=== PATIENT | male | born 1980 | race Caucasian/White ===

== ENCOUNTER 2016-09-05 13:19 | Emergency (ER) | payer OTHER ==
--- NOTE | ~2016-09-05 | CR170 ---
[facility] A Service of [facility] & [facility] RADIOLOGY TEXT RESULTS PATIENT: TED DUMONT LOCATION: SED : 78 UNIT #: [id number] AGE: [address]: Deepika Seymour SEX: M ORDER DR: [id number] [place] [id number] E MR#: [id number] Acc #: [id number] NAME: TED DUMONT : 1980 SEX: M STUDY DATE/TIME: 09/05/2016 1359 UNIT: SED ROOM: STUDY DESCRIPTION: CR Knee 2 Views Rt Attending Physician: Deepika Seymour Pa-C Ordering Physician: Deepika Seymour Pa-C Primary Care Physician: No Primary Care Physician MEDICAL IMAGING REPORT This report is preliminary unless electronic signature is present. EXAM Right knee 2 views 09/05/2016 1359 hours HISTORY 36-year-old who fell today with twisting injury to knee COMPARISON None. FINDINGS AP and cross-table lateral views demonstrate a small suprapatellar bursa effusion without lipohemarthrosis or fracture. There is no joint space loss or foreign body. IMPRESSION A small knee joint effusion is present without lipohemarthrosis, fracture or degenerative change. Dictated by... Imelda Moss M.D. THIS IS AN ELECTRONICALLY VERIFIED REPORT Imelda Moss M.D. at 09/05/2016 7:31 PM Mary TD: 09/05/2016 16:21 JOB #: [id number] MEDICAL IMAGING REPORT Page 1 of 1
[~2016-09-05 13:19] MED LIST: BACTRIM DS TABL1 TA1 PO; IBUPROFEN800 MG; MOTRIN600 MG PO; NO MEDICATIONS; PREDNISONE PO; VICODIN 5/1 TAB 5/50 PO; ZYRTEC5 MG PO
[2016-09-05] MEDS ORDERED: EFFEXOR PO (13:34)
[2016-09-05] MEDS ORDERED: DESYREL100 MG PO (13:34)
== END 2016-09-05 14:37 | disposition home or self-care (01) ==
LOC: SED 13:19
DX: M25.461 Effusion, right knee (principal); F17.210 Nicotine dependence, cigarettes, uncomplicated; Z79.899 Other long term (current) drug therapy
CPT/HCPCS: 29505; 73560; 99283